=== PATIENT | female | born 1995 | race Caucasian/White ===

== ENCOUNTER 2019-09-23 08:35 | Day surgery (SDC) | payer BC ==
[~2019-09-23] VITALS: Ht 165.1 cm; Wt 102.4 kg
[~2019-09-23 08:35] MED LIST: CYCL-259 PO
[2019-09-23] MEDS ORDERED: LACTATED RINGERS 1,000 ML IV SCH (08:56)
[2019-09-23] MEDS ORDERED: GABAPENTIN 300 MG CAPSULE PO ONE (09:00)
[2019-09-23] MEDS ORDERED: LIDOCAINE-MPF 1%, 2ML INFIL ONE (09:00)
[2019-09-23] MEDS ORDERED: ACETAMINOPHEN 500 MG TABLET PO ONE (09:00)
[2019-09-23] MEDS ORDERED: CHLORHEXIDINE 15 ML UDC MM ONE (09:10)
[2019-09-23] MEDS ORDERED: ACET-1600 PO (09:15)
[2019-09-23 09:19] VITALS: BP 111/68
[2019-09-23] MEDS ORDERED: LIDOCAINE/PF 0.5% ,50ML ONE (10:41)
[2019-09-23] MEDS ORDERED: BUPIVACAINE/PF-EPI 0.25% 1:200K ONE (10:41)
[2019-09-23] MEDS ORDERED: VANCOMYCIN 1,000 MG ONE (10:41)
[2019-09-23] MEDS ORDERED: EPINEPHRINE 1 MG/ML, 1ML ONE (10:42)
[2019-09-23] MEDS ORDERED: MIDAZOLAM 1 MG/ML, 2ML ONE (12:08)
[2019-09-23] MEDS ORDERED: FENTANYL PF 250 MCG/5ML ONE (12:08)
[2019-09-23] MEDS ORDERED: HYDROmorphone 2 MG/ML, 1ML IVPush PRN (13:30)
[2019-09-23] MEDS ORDERED: DIAZEPAM 5 MG/ML, 2ML IVPush PRN (13:30)
[2019-09-23] MEDS ORDERED: FENTANYL PF 100 MCG/2ML IV PRN (13:30)
[2019-09-23] MEDS ORDERED: OXYcodone 5 MG/5 ML ORAL.SOL UDC PO PRN (13:30)
[2019-09-23] MEDS ORDERED: PROMETHAZINE 25 MG/ML, 1ML IV PRN (13:30)
[2019-09-23] MEDS ORDERED: MEPERIDINE/PF 25MG/ML,1ML IVPush PRN (13:30)
[2019-09-23] MEDS ORDERED: FENTANYL PF 100 MCG/2ML ONE (14:34)
[2019-09-23] MEDS ORDERED: MEPERIDINE/PF 25MG/ML,1ML ONE (14:34)
== END 2019-09-23 16:40 | disposition home or self-care (01) ==
LOC: OUT 08:35
PROVIDERS: ATTEND Orthopaedic Surgery Orthopaedic Surgery of the Spine
DX: M51.17 Intervertebral disc disorders with radiculopathy, lumbosacral region (principal); Z79.82 Long term (current) use of aspirin; Z79.899 Other long term (current) drug therapy; Z88.2 Allergy status to sulfonamides; Z88.8 Allergy status to other drugs, medicaments and biological substances; Z91.048 Other nonmedicinal substance allergy status; Z98.890 Other specified postprocedural states
CPT/HCPCS: 36415; 63030; 72100; 84703; J0171; J2001; J2175; J2250; J3010; J3370; J7120